=== PATIENT | male | born 1940 | race Hispanic/Latino ===

== ENCOUNTER 2018-02-28 10:34 | Day surgery (SDC) | payer OTHER ==
[2018-02-25 15:11] LABS: APPEARANCE,URINE Clear (CLEAR); BILIRUBIN,URINE Negative (NEGATIVE); COLOR,URINE Yellow (YELLOW); GLUCOSE, URINE (UA) Negative (NEGATIVE); KETONES,URINE Negative (NEGATIVE); LEUKOCYTE ESTERASE ,URINE Negative (NEGATIVE); NITRATE,URINE Negative (NEGATIVE); OCCULT BLOOD,URINE Nonhemolyzed Trace (NEGATIVE); PROTEIN,URINE POS 1+ (NEGATIVE); UROBILINOGEN,URINE 0.2 mg/dL (0.2-1.0)
[2018-02-25 15:11] LABS: BASOPHILS % (AUTO) 0.3 % (0.0-5.0); EOSINOPHILS % (AUTO) 1.6 % (0.0-8.0); LYMPHOCYTES % (AUTO) 25.2 % (21.0-51.0); MEAN CORPUSCULAR HEMOGLOBIN 32.6 pg (27.0-33.0); MEAN CORPUSCULAR HGB CONC 34.3 g/dL (32.0-36.0); MEAN CORPUSCULAR VOLUME 94.8 fL (79-99); MONOCYTES % (AUTO) 11.3 % (3.0-13.0); NEUTROPHILS % (AUTO) 61.6 % (40.0-77.0); PLATELET COUNT (AUTO) 242 K/uL (130-400); RED BLOOD CELL COUNT(AUTO) 4.64 MIL/uL (4.50-6.20); WHITE BLOOD COUNT (AUTO) 11.2 K/uL (4.8-10.8)
[2018-02-25 15:20] LABS: BACTERIA,URINE Rare /HPF (None Seen); MUCUS,URINE Few LPF (None Seen); RBC,URINE 0-1 /HPF (0-1); SQUAMOUS EPITHELIAL CELL,UR 0-2 /HPF (0-2); WBC,URINE None Seen /HPF (0-1)
[2018-02-25 15:24] VITALS: BP 125/74
[2018-02-25 15:26] LABS: CREATININE 1.4 mg/dL (0.5-1.5); POTASSIUM 3.5 mmol/L (3.5-5.1)
[2018-02-28] VITALS (18 sets, daily range): BP systolic 102–154; BP diastolic 54–98
[~2018-02-28] VITALS: Ht 161.3 cm; Wt 70.5 kg
[~2018-02-28 10:34] MED LIST: ENAL5TAB PO; GENTAMICIN 80 MG/NS 100 ML PB 100 ML IV PRN; GLIM2TAB3 PO; HYDR12.530 PO; METF500T6 PO; METO50TA18 PO; PRAV40TA3 PO
[2018-02-28] MEDS ORDERED: SODIUM CHLORIDE 0.9% 1000ML 1,000 ML IV ONE (11:15)
[2018-02-28] MEDS: CEFTRIAXONE SODIUM 1 GM IVP PRN ×2 (11:36→15:30)
[2018-02-28] MEDS ORDERED: DEXAMETHASONE SOD PHOSPHATE 10MG/ML 1ML VIAL ONE (14:45)
[2018-02-28] MEDS ORDERED: ONDANSETRON HCL 4 MG/2 ML VIAL ONE (14:45)
[2018-02-28] MEDS ORDERED: SUCCINYLCHOLINE 200MG/10ML SYR ONE (14:45)
[2018-02-28] MEDS ORDERED: GLYCOPYRROLATE 0.2 MG/ML 5 ML VIAL ONE (14:45)
[2018-02-28] MEDS ORDERED: NEOSTIGMINE 5MG/5ML SYR IV ONE (14:45)
[2018-02-28] MEDS ORDERED: LIDOCAINE PF 2% 5ML ABBOJECT ONE (14:45)
[2018-02-28] MEDS ORDERED: PROPOFOL 10 MG/ML 20ML VIAL IV ONE (14:46)
[2018-02-28] MEDS ORDERED: MIDAZOLAM HCL 1 MG/ML 2ML VIAL ONE (14:46)
[2018-02-28] MEDS ORDERED: FENTANYL CITRATE PF 50 MCG/1 ML 2ML VIAL ONE (14:46)
[2018-02-28] MEDS ORDERED: RACEPINEPHRINE HCL 2.25% 0.5 ML NEB SOLN ONE (16:18)
== END 2018-02-28 18:20 | disposition home or self-care (01) ==
LOC: DAH 10:34
PROVIDERS: ATTEND Urology
DX: N42.0 Calculus of prostate (principal); R31.9 Hematuria, unspecified; I10 Essential (primary) hypertension; E78.5 Hyperlipidemia, unspecified; E11.9 Type 2 diabetes mellitus without complications; N40.1 Benign prostatic hyperplasia with lower urinary tract symptoms; E66.9 Obesity, unspecified; Z79.899 Other long term (current) drug therapy; Z98.890 Other specified postprocedural states
CPT/HCPCS: 36415; 52317; 80048; 81001; 82360; 82948; 85025; 87088; 88300; 93005; 94640; A4218; A4344; A4358; A4600; A4649; A4930; J0330; J0696; J1100; J1580; J2001; J2250; J2405; J2704; J2710; J3010; J3490; J7030 ×2

== ENCOUNTER 2019-11-12 06:33 | Day surgery (SDC) | payer OTHER ==
[~2019-11-12] VITALS: Ht 170.2 cm; Wt 70.8 kg
[~2019-11-12 06:33] MED LIST changes: -ENAL5TAB PO; +ENAL5TAB17 PO; -GENTAMICIN 80 MG/NS 100 ML PB 100 ML IV PRN; -GLIM2TAB3 PO; +GLIM2TAB30 PO; +METF-444 PO; -METF500T6 PO; +SODIUM CHLORIDE 0.9% 1000ML 1,000 ML IV ONE
[2019-11-12 07:15] VITALS: BP 134/81
[2019-11-12] MEDS ORDERED: PROPOFOL 10 MG/ML 20ML VIAL IV ONE (07:51)
[2019-11-12] MEDS ORDERED: LIDOCAINE HCL 1% 20 ML VIAL ONE (07:53)
[2019-11-12 08:09] VITALS: BP 103/69
[2019-11-12 08:16] VITALS: BP 101/69
[2019-11-12 08:21] VITALS: BP 131/78
[2019-11-12 08:26] VITALS: BP 136/78
[2019-11-12 08:35] VITALS: BP 139/75
== END 2019-11-12 08:47 | disposition home or self-care (01) ==
LOC: ENDO 06:33 → DAH 06:33 → ENDO 08:47
PROVIDERS: ATTEND Internal Medicine Gastroenterology
DX: Z12.11 Encounter for screening for malignant neoplasm of colon (principal); K63.5 Polyp of colon; K57.30 Diverticulosis of large intestine without perforation or abscess without bleeding; I10 Essential (primary) hypertension; E11.9 Type 2 diabetes mellitus without complications; E78.5 Hyperlipidemia, unspecified; E66.9 Obesity, unspecified; Z86.010 Personal history of colon polyps; Z79.84 Long term (current) use of oral hypoglycemic drugs; Z79.899 Other long term (current) drug therapy; Z98.890 Other specified postprocedural states
CPT/HCPCS: 45380; 82948 ×3; 88305; A4215; A4221; A4222; A4223; A4606; A4615; A4663; J2704; J7030